=== PATIENT | female | born 1965 | race Caucasian/White ===

== ENCOUNTER 2017-11-07 14:30 | Observation (INO) | payer OTHER ==
[2017-11-06 12:54] VITALS: BMI 17.2
[~2017-11-07 14:30] MED LIST: Dexamethasone 20 MG/5 ML VIAL ONE; Ketorolac Tromethamine 30 MG/ML VIAL ONE; Ondansetron HCl/PF 4 MG/2 ML Vial ONE; PROPOFOL 200 MG/20 ML VIAL ONE; TETANUS AND DIPHTHERIA TOX/PF 0.5 ML DISP.SYRIN IM SCH
[2017-11-07 15:31] LABS: #Basophils 0.1 thou/uL (0.0-0.2); #Eosinphils 0.1 thou/uL (0.0-0.7); #Lymphocytes 2.2 thou/uL (1.20-3.40); #Monocytes 0.3 thou/uL (0.11-0.59); #Neutrophils 3.5 thou/uL (1.40-6.50); %Basophils 1.5 % (0.0-1.0); %Eosinophils 1.2 % (0.0-10.0); %Monocytes 5.3 % (0.0-10.0); %Neutrophils 56.9 % (42.0-75.0); Hemoglobin 14.4 g/dL (12.0-16.0); Mean Corpuscular HGB CONC 32.8 g/dL (32.0-36.0); Mean Corpuscular Hemoglobin 29.7 pg (27.0-31.0); Mean Corpuscular Volume 90.6 fl (81.0-99.0); Mean Platelet Volume 7.6 fL (7.4-10.4); Platelet Count 247 thou/uL (130-400); RBC Distribution Width 12.3 % (11.5-14.5); Red Blood Cell (RBC) Count 4.84 mill/uL (4.20-5.40); White Blood Cell (WBC) Count 6.2 thou/uL (4.8-10.8)
[2017-11-07] MEDS ORDERED: Clindamycin/D5W 600 mg/50 ml Premix Bag ONE (15:32)
[2017-11-07 15:54] LABS: Anion Gap 13 mmol/L (10-20); BUN (Urea Nitrogen) 15 mg/dL (9.8-20.1); Calc. Creatinine Clearance 62 mL/min (70-130); Calcium 10.2 mg/dL (7.8-10.44); Carbon Dioxide 26 mmol/L (22-29); Chloride 107 mmol/L (98-107); Estimated GFR-MDRD 82; Glucose 88 mg/dL (70-105); Potassium 3.7 mmol/L (3.5-5.1); Sodium 142 mmol/L (136-145)
--- NOTE | 2017-11-07 16:10 | RAD ---
CHEST TWO VIEWS: History: Pre op. Comparison: None. FINDINGS: Mild lung hyperinflation. Scarring in the lung apices. Cardiac silhouette and mediastinal contours ar e within normal limits. No focal airspace consolidation. IMPRESSION: Lung hyperinflation suggestion COPD. POS: [facility]
[2017-11-07] MEDS ORDERED: Lidocaine 1% PF 5 ML VIAL ONE (18:26)
[2017-11-07] MEDS ORDERED: Fentanyl 100 MCG/2 ML VIAL ONE (18:35)
[2017-11-07] MEDS ORDERED: Bupivacaine PF 0.5% 30 ML VIAL ONE (19:50)
[2017-11-07] MEDS ORDERED: Sodium Chloride 0.9% 0 ML ONE (19:50)
[2017-11-07] MEDS ORDERED: Bacitracin Zinc Ointment 30 gm TUBE ONE (19:50)
[2017-11-07] MEDS ORDERED: Betamet Acet/Betamet Na Ph 30 MG/5 ML VIAL ONE (22:23)
--- NOTE | 2017-11-07 22:43 | RAD ---
RADIOGRAPH RIGHT WRIST 8 VIEWS: 11/07/17 Attention Era in bladimir: This is an 8 view study. HISTORY: 52-year-old female with acute traumatic distal radial metaphyseal fracture. COMPARISON: None. FINDINGS: Intrinsically low resolution, small field of view, fluoroscopic spot images obtained with C-arm. Init ial frontal and lateral views demonstrate transversely oriented fracture of the distal radial metaphy sis with mild dorsal angulation of the distal fragment. Next image demonstrates placement of volar me tallic plate with screws, from the distal radial diaphysis to the distal epiphysis, and interval impr ovement in the angulation of the fracture. Subsequent images demonstrate placement of K-wire which ov erlies the capitate and lunate. IMPRESSION: 1. Ongoing open reduction and internal fixation of acute, traumatic, mildly displaced fracture o f the distal radial metaphysis. 2. Ongoing pin fixation of midline carpal bones. POS: [facility]
[2017-11-07] MEDS ORDERED: Midazolam HCl 2 mg/2 ml Vial ONE (23:15)
[2017-11-07] MEDS ORDERED: traMADol HCl 50 MG TAB PO PRN (23:38)
[2017-11-07] MEDS ORDERED: HYDROcodone/Acetaminophen 5/325 mg Tablet PO PRN (23:38)
[2017-11-07] MEDS ORDERED: Promethazine HCl 25 MG/ML VIAL IM PRN (23:38)
[2017-11-07] MEDS ORDERED: Milk Of Magnesia 30 ML UDCUP PO PRN (23:38)
[2017-11-07] MEDS ORDERED: Ondansetron HCl/PF 4 MG/2 ML Vial IV PRN (23:38)
[2017-11-07] MEDS ORDERED: RENALLY ADJUST ANTIBIOTICS FS PRN (23:45)
[2017-11-08] MEDS: Ketorolac Tromethamine 30 MG/ML VIAL IVP SCH ×2 (00:34→05:31)
[2017-11-08] MEDS ORDERED: Vancomycin HCl 1 GM in Premix Bag 1 BAG IVPB SCH (03:00)
[2017-11-08 07:35] VITALS: BP 109/64; TEMP 98.2
--- NOTE | 2017-11-08 08:43 | OP ---
DATE OF PROCEDURE: 11/07/2017 PREOPERATIVE DIAGNOSES: 1. 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 2. Carpal tunnel syndrome. POSTOPERATIVE DIAGNOSES: 1. Very tight transcarpal ligament, but no evidence of gross median nerve contusion despite clinical findings consistent with carpal tunnel and history consistent with post-fracture carpal tunnel. 2. She had marked dorsal comminution of the distal radius fracture with shortening of a -2 mm ulnar positive wrist and almost a 30-degree apex palmar angulation. It was corrected today to 5 degrees pa lmar tilt, 2 mm radial positive height with dorsal bone grafting, open reduction and internal fixatio n palmarly, malunion correction dorsally. PROCEDURES PERFORMED: 1. Open treatment of malunion, distal radius. 2. Open reduction and internal fixation of distal radius fracture. 3. Major bone graft and dorsal as described above. 4. Carpal tunnel release. ESTIMATED BLOOD LOSS: 550 mL. ANESTHESIA: General LMA technique augmented by preoperative axillary block. FINDINGS: Again, findings showed the 20 degrees apex volar angulation and corrected to 5 degrees pal mar tilt in the sagittal plane and 2 mm radial positive wrist correspond to capitolunate joint contra cture palmarly leading to a tight mid carpal joint and palmar flexion with dorsiflexion of the lunate and palmar flexion of the capitate. So, we will correct this with the following procedure. 1. Capsulotomy palmar from a dorsal approach. 2. Open treatment with internal fixation of the capitolunate joint with total sagittal plane correct ion. INDICATION: The patient had a fall 5 weeks ago, evaluated by one of my partners and was placed in ap propriate closed reduction casting, but over the course of 4 weeks drifted to the deformity as descri bed above. 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 DESCRIPTION OF PROCEDURE: After successful general LMA technique and this was after she had a block in the preoperative area, then was prepped and draped, timeout was done appropriately. We then first entered with a dorsal incision carried through the skin and subcutaneous tissue, maintaining the ret inaculum as the fracture line was just proximal to this, we began using a mallet along with an osteot ome to free the bone palm dorsally, and once we had done this, we then hinged it apex dorsal, filled this with cortical cancellous bone graft in a form of block cut in half, so we had achieved approxima tely 3-4 mm of the height and approximately 20 degrees of angular correction apex dorsal sagittal maggie ne. Then, this was pinned in this position with further bone graft was placed and we then made a pal mar incision in the interval between the flexor carpi radialis and the radial artery, and carried it down making an L-shaped pronator quadratus flap, which we could then close later. We then finished t he loosening of the fracture, performed an open reduction and pinning preliminarily accomplished more bone graft dorsal and palmar and had achieved adequate correction of -5 degrees apex dorsal or strai ght palmar angulation. We then placed the palmar plate with no screws violating the joint line or fr ontal sagittal plane confirmed. The patient then had the attention turned to the carpal tunnel area. She had the complaints, physical exam and symptoms, so we made a little mini incision and carried i t proximally to where we can see the median nerve in the area of . From this point, hemostasis was released, the tourniquet was released, and we were able to maintain hemostasis. The palmar inci dorcas was closed with excellent hemostasis with a running 3-0 Monocryl and followed by a 4-0 nylon mat tress pattern closure in interrupted fashion. The patient left the operating room. The patient had no evidence of abnormality, and closure was completed with 4-0 nylon for the carpal tunnel incision; 3-0 nylon for the dermal epidermal junction and a running subcutaneous Monocryl. We injected b lock was still in effect and the patient left the operating room without evidence of anesthetic or op erative complication. A sugar tong splint was applied.
[2017-11-08] MEDS ORDERED: Aspirin 81 mg Enteric Coated Tablet PO SCH (09:00)
== END 2017-11-08 11:34 | disposition home or self-care (01) ==
LOC: SDC 14:30 → SURG B 11-08
PROVIDERS: ADMIT Orthopaedic Surgery Hand Surgery; ATTEND Orthopaedic Surgery Hand Surgery
PROC: 0PSH04Z Reposition Right Radius with Internal Fixation Device, Open Approach (ICD-10-PCS; principal; 2017-11-08)
PROC: 0PUH07Z Supplement Right Radius with Autologous Tissue Substitute, Open Approach (ICD-10-PCS; 2017-11-08)
PROC: 01N50ZZ Release Median Nerve, Open Approach (ICD-10-PCS; 2017-11-08)
DX: S52.501P Unspecified fracture of the lower end of right radius, subsequent encounter for closed fracture with malunion (principal); G56.01 Carpal tunnel syndrome, right upper limb; F17.210 Nicotine dependence, cigarettes, uncomplicated; J44.9 Chronic obstructive pulmonary disease, unspecified; D64.9 Anemia, unspecified; K21.9 Gastro-esophageal reflux disease without esophagitis; Z88.0 Allergy status to penicillin
CPT/HCPCS: 71046; 76001; 80048; 85025; 96374; 96375; 96376; A4216; C1713; G0378; J0131; J0702; J1100; J1885; J2001; J2250; J2270; J2405; J2704; J3010; J3370; J3490; S0020

== ENCOUNTER → 2017-12-08 | Day surgery (SDC) | payer OTHER ==
[2017-12-07 10:44] VITALS: BMI 16.6
[~2017-12-08] MED LIST changes: +Bacitracin Zinc Ointment 30 gm TUBE ONE; +Bupivacaine PF 0.5% 30 ML VIAL ONE; +Clindamycin/D5W 600 mg/50 ml Premix Bag ONE; -Dexamethasone 20 MG/5 ML VIAL ONE; +Fentanyl 100 MCG/2 ML VIAL ONE; +HYDROmorphone 0.5 MG/0.5 ML SYRINGE ONE; +Midazolam HCl 2 mg/2 ml Vial ONE; -Ondansetron HCl/PF 4 MG/2 ML Vial ONE; +PHENYLEPHRINE-NS 100 MCG/ML 10 ML SYRINGE ONE; -PROPOFOL 200 MG/20 ML VIAL ONE; +Sodium Chloride 0.9% 0 ML ONE; -TETANUS AND DIPHTHERIA TOX/PF 0.5 ML DISP.SYRIN IM SCH
--- NOTE | 2017-12-08 10:05 | OP ---
DATE OF PROCEDURE: 12/08/2017 PREOPERATIVE DIAGNOSES: 1. Retained deep wire implant capital lunate joint. 2. Distal radius fracture. POSTOPERATIVE DIAGNOSES: 1. Retained deep wire implant capital lunate joint. 2. Distal radius fracture. SURGEON: Abdifatah Zuniga M.D. FINDINGS: Completely healed and stable distal radius fracture with 5 degrees palmar tilt and radial height, no change in implants. Capital lunate joint position still has approximately 15 degrees of l unate dorsiflexion. DESCRIPTION OF PROCEDURE: After successful anesthesia, C-arm brought to the field, identified the wi re. Inflated the tourniquet and after exsanguination of limb to 250 mmHg pressure. A 1 cm incision was made, carried through skin and subcutaneous tissue dissected down until we saw th e blue sutures of the capsule closure. We released 1 blue suture, palpated the wire and then visuali zed it. We removed the wire with a large needle villarreal. C-arm then showed the alignment as listed i n findings listed above and that the patient's motion immediately increased from pre-wire removal pas sive 40 degrees, palmar flexion 30 degrees dorsiflexion to passive 70 degrees palmar flexion and 60 d egrees dorsiflexion. Hemostasis obtained. The wound was closed with interrupted 5-0 nylon. We injected with 10 mL Marcai ne with epinephrine and she left the operating room without complications in a soft dressing.
--- NOTE | 2017-12-08 15:46 | RAD ---
RIGHT WRIST TWO VIEW 12/08/17 HISTORY: Hardware removal. COMPARISON: None. FINDINGS: Fluoroscopy for surgical use. The fluoro time is 10 seconds. IMPRESSION: Fluoroscopy for surgical use. POS: [facility]
== END ==
LOC: SDC 06:11
PROVIDERS: ATTEND Orthopaedic Surgery Hand Surgery
PROC: 0RPQ04Z Removal of Internal Fixation Device from Right Carpal Joint, Open Approach (ICD-10-PCS; principal; 2017-12-08)
DX: Z47.2 Encounter for removal of internal fixation device (principal); Z79.899 Other long term (current) drug therapy
CPT/HCPCS: 76001; 93005; 93010; A4216; J1170; J1885; J2250; J3010; J3490; S0020